=== PATIENT | female | born 1970 | race Caucasian/White ===

== ENCOUNTER 2020-04-16 05:16 | Emergency (ER) | payer OTHER ==
[~2020-04-16] VITALS: Ht 162.6 cm; Wt 100.0 kg
[~2020-04-16 05:16] MED LIST: LEVOTHYROXIN137 MCG PO; LEVOTHYROXIN150 MC1 PO; LEVOTHYROXIN175 MC1 PO; LISINOPRIL10 MG PO
[2020-04-16] MEDS ORDERED: PERCOCET 5/325M1 TAB PO (05:56)
[2020-04-16] MEDS ORDERED: AMOXICILLIN500 M2 PO (05:56)
[2020-04-16 06:03] VITALS: BP 172/85
== END 2020-04-16 06:15 | disposition home or self-care (01) | DRG 159 ==
LOC: ED 05:16
DX: K04.7 Periapical abscess without sinus (principal); I10 Essential (primary) hypertension